=== PATIENT | male | born 2000 | race African-American/Black ===

== ENCOUNTER 2020-07-24 16:43 | Emergency (ER) | payer MEDICAID ==
[~2020-07-24] VITALS: Ht 180.3 cm; Wt 81.0 kg
[2020-07-24] MEDS ORDERED: ONDANSETRON HCL 4MG/2ML INJ IV STA (16:58)
[2020-07-24] MEDS ORDERED: FAMOTIDINE 20MG/2ML VIAL IV STA (16:58)
[2020-07-24] MEDS ORDERED: SODIUM CHLORIDE 0.9% 1,000 ML IV ONE (17:00)
[2020-07-24] MEDS ORDERED: MAGNESIUM/ALUMINUM HYDROXIDE/SIMETHICONE 30ML UDC PO ONE (17:30)
[2020-07-24 18:00] LABS: BASOPHILS % 0.6 % (0.0-2.0); EOSINOPHILS % 0.1 % (0.0-5.0); HEMATOCRIT. 41.8 % (42.0-52.0); LYMPHOCYTES % 9.2 % (20.0-50.0); MEAN CORPUSCULAR HEMOGLOBIN 27.9 pg (28.0-32.0); MEAN CORPUSCULAR VOLUME 83.3 fL (80.0-94.0); MEAN PLATELET VOLUME 9.6 fl (7.4-10.4); MONOCYTES % 3.3 % (2.0-8.0); NEUTROPHILS % 86.8 % (40.0-76.0); PLATELET 176 x1000/uL (130-400); RED BLOOD CELL COUNT 5.01 mill/uL (4.7-6.1); RED CELL DISTRIBUTION WIDTH 13.8 % (11.6-14.6)
[2020-07-24 18:06] LABS: CHLORIDE 109 mEq/L (98-107)
[2020-07-24 18:07] LABS: CLARITY URINE TURBID (CLEAR); COLOR URINE YELLOW (YELLOW); KETONES URINE 2+ (NEGATIVE); LEUKOCYTE ESTERASE URINE TRACE (NEGATIVE); NITRITE URINE NEGATIVE (NEGATIVE); OCCULT BLOOD URINE NEGATIVE (NEGATIVE); PH URINE >=9.0 (4.5-8.0); PROTEIN URINE NEGATIVE (NEGATIVE); SPECIFIC GRAVITY URINE 1.021 (1.005-1.030)
[2020-07-24 18:08] LABS: INR 1.1
[2020-07-24 18:10] LABS: ETHANOL BLOOD < 10 mg/dL
[2020-07-24 18:20] LABS: *AMPHETAMINES SCREEN URINE NEGATIVE (NEGATIVE); *BARBITURATES SCREEN URINE NEGATIVE (NEGATIVE); *BENZODIAZEPINES SCREEN URINE NEGATIVE (NEGATIVE); *COCAINE SCREEN URINE NEGATIVE (NEGATIVE)
[2020-07-24 18:21] LABS: CANNABINOID URINE SCREEN PRESUMTIVE POSITIVE (NEGATIVE); METHADONE URINE SCREEN NEGATIVE (NEGATIVE); OPIATES URINE SCREEN NEGATIVE (NEGATIVE); PHENCYCLIDINE URINE SCREEN NEGATIVE (NEGATIVE)
[2020-07-24 18:37] VITALS: BP 131/77
[2020-07-24] MEDS ORDERED: ONDA4TAB5 MT (18:45)
[2020-07-24] MEDS ORDERED: CEPH500C2 MT (18:45)
[2020-07-24] MEDS ORDERED: FAMO40TA70 MT (18:45)
[2020-07-24] MEDS ORDERED: CEPHALEXIN 250MG CAPSULE PO ONE (18:45)
== END 2020-07-24 19:02 | disposition home or self-care (01) ==
LOC: ER 16:43
DX: R11.2 Nausea with vomiting, unspecified (principal); N39.0 Urinary tract infection, site not specified; R03.0 Elevated blood-pressure reading, without diagnosis of hypertension; F12.90 Cannabis use, unspecified, uncomplicated
CPT/HCPCS: 36415; 80053; 80305; 80320; 81003; 83690; 85025; 85610; 93005; 96361; 96374; 96375; 99284; J2405; J3490; J7030; G0480